=== PATIENT | female | born 1955 | race Caucasian/White ===

== ENCOUNTER 2024-10-14 21:03 | Emergency (ER) | payer MEDICARE, MEDICAID, SELFPAY ==
[2024-10-14 21:17] VITALS: BP 206/114; BP 206/147; PULSE 74; RESP 17; TEMP 36.6; O2SAT 96
--- NOTE | 2024-10-14 21:45 | PD.EDRME ---
Rapid Medical Screening Exam RME Arrival date/time: 10/14/24 21:03 Chief Complaint: Abdominal Pain Time Seen by Provider: 10/14/24 21:31 Vital signs: Vital Signs Temperature 97.8 F 10/14/24 21:17 Pulse Rate 74 10/14/24 21:17 Respiratory Rate 17 10/14/24 21:17 Blood Pressure 206/147 H 10/14/24 21:17 Pulse Oximetry (%) 96 10/14/24 21:17 Oxygen Delivery Method Room Air 10/14/24 21:17 RME Narrative: 69-year-old female presents to the ED with a complaint of nausea, vomiting, upper abdominal pain since last night. The pain is getting progressively worse causing abdominal swelling and distention with radiation to her back. She denies fever or chills, diarrhea but has had some constipation. Her last bowel movement was this morning. I have greeted and performed a focused initial assessment of this patient. A comprehensive ED assessment and evaluation of the patient, analysis of all test results, and completion of the medical decision making process will be conducted by additional ED providers.
--- NOTE | 2024-10-14 21:47 | XR_ITS ---
Examination: CT abdomen with intravenous contrast CT pelvis with intravenous contrast 2-D coronal reconstructions 2-D sagittal reconstructions Date and time of exam:October 14, 2024 11:37 PM INDICATIONS: Upper abdominal pain nausea vomiting beginning 3 days ago. CTDI: vol (mGy) 12.4 DLP: (mGycm) 699 Technique: Multiple axial sections of the abdomen and pelvis have been obtained. 64 slice high-resolution scanner used. 3 mm axial sections have been obtained, post intravenous injection 60 cc Isovue 370 2-D sagittal, coronal reconstructions obtained. Low dose protocols were performed. One or more of the following dose reduction techniques were used; automated exposure control, adjustment of the mA and/or KV according to patient size, use of iterative reconstruction technique. Findings: No focal liver or splenic lesions Absent gallbladder No pancreatic mass Left perinephric stranding 2 mm left renal calculus Wall enhancement involving the left pelvicalyceal system and left ureter, no ureteral calculi No pericecal inflammatory change No pelvic mass Air in the urinary bladder Minimal perivesical fat stranding IMPRESSION: Findings most consistent with left pyelonephritis and cystitis
[2024-10-14 22:22] LABS: Basophils % (Auto) 0 % (0-2.5); Eosinophils # (Auto) 0.1 Thou/mm3 (0.0-0.5); Eosinophils % (Auto) 1 % (0-10); Immature Granulocytes % (Auto) 0 % (0-0); Immature Granulocytes Auto 0.04 Thou/mm3 (0.00-0.00); Lymphocytes % (Auto) 11 % (10-50); Mean Corpuscular Hemoglobin 29.4 pg (25.0-35.0); Mean Corpuscular Volume 84 fL (80-100); Monocytes # (Auto) 0.5 Thou/mm3 (0.0-0.8); Monocytes % (Auto) 5 % (0-12); Neutrophils % (Auto) 82 % (37-80); Nucleated Red Blood Cell % 0 /100 WBC (0); Platelet Count 230 Thou/mm3 (140-440); RDW Standard Deviation 40.4 fL (36.4-46.3); Red Blood Count 4.76 Miln/mm3 (4.00-5.20); White Blood Count 9.7 Thou/mm3 (3.6-11.0)
[2024-10-14 22:33] LABS: Collection Type, Urine Clean Catch
[2024-10-14 22:48] LABS: Alanine Aminotransferase 14 U/L (10-49); Albumin, Serum 4.1 gm/dL (3.4-4.8); Albumin/Globulin Ratio 1.5 (1.2-2.2); Alkaline Phosphatase 74 U/L (46-116); Amylase 61 U/L (30-118); Anion Gap 11 (7-16); BUN/Creatinine Ratio 20 Ratio (12-20); Bilirubin,Total 0.6 mg/dL (0.3-1.2); Blood Urea Nitrogen 16 mg/dL (9-23); Calcium 9.1 mg/dL (8.3-10.6); Calcium (Corrected) 9.1 mg/dL (8.5-10.1); Carbon Dioxide 30.9 mMol/L (20.0-31.0); Chloride 106 mMol/L (98-107); Creatinine (Component) 0.8 mg/dL (0.6-1.3); Globulin 2.7 gm/dL (2.3-3.5); Glucose 170 mg/dL (74-106); Lipase 24 U/L (12-53); Osmolality,Calculated 299 (275-295); Phosphorous 2.7 mg/dL (2.4-5.1); Potassium 3.5 mMol/L (3.4-5.1); Sodium 148 mMol/L (136-145); Total Protein 6.8 gm/dL (5.7-8.2); eGFR > 60 See Note
[2024-10-14] MEDS: ONDANSETRON INJ 2 MG/ML INJ 2 ML 4 MG IVP (22:50)
[2024-10-14] MEDS: HYDROmorphone INJ 2 MG/ML VIAL 1 MG IVP (22:51)
[2024-10-14 22:52] LABS: Bilirubin,Urine Negative (Negative); Blood,Urine 2+ (Negative); Calcium Oxalate Crystals,Urine 1+; Clarity,Urine Turbid (Clear/Hazy); Color,Urine Lt-Yellow (Lt Yel-Yel); Glucose, Urine Negative (Negative); Ketones,Urine Negative (Negative); Leukocyte Esterase,Urine Negative (Negative); Nitrite,Urine Negative (Negative); PH,Urine 7.5 (5.0-7.0); Protein,Urine 2+ (Neg - Trace); RBC,Urine 169 /hpf (0-3); Specific Gravity,Urine 1.017 (1.001-1.035); Squamous Epithelial Cell,Urine 1 /hpf (0-5); Urobilinogen,Urine Negative mg/dL (0.0-1.0); WBC,Urine 3 /hpf (0-5)
[2024-10-14 23:18] VITALS: BP 142/82; PULSE 67; RESP 17; O2SAT 95
[2024-10-15] MEDS: SODIUM CHLORIDE 0.9% 1000 ML 1,000 ML 999 ML IV (00:02)
--- NOTE | 2024-10-15 01:14 | PRELIM_ITS ---
CT scan of the abdomen and pelvis with intravenous contrast (axial sections with sagittal and coronal reformats) October 14, 2024 2335 hours Clinical History: Upper abdominal pain, nausea and vomiting Findings: Heterogeneous lung attenuation is noted with streaky atelectasis. A calcified granuloma is seen in the left lobe of the liver. The gallbladder is surgically absent. There is mild nonspecific prominence of hte intrahepatic bile ducts. There are punctate nonobstructing left renal calculi. There is mild left hydronephrosis with urothelial thickening and enhancement. There is mild perinephric fat stranding. No evidence of ureteric calculus. The pancreas, spleen, and adrenals are unremarkable. No evidence of bowel obstruction. The appendix is within normal limits (images [id number]). There is no mesenteric or retroperitoneal adenopathy. Tiny air loculus is seen in the urinary bladder. Tiny perivesical fat stranding is seen. The uterus and adnexa are unremarkable. There is no free fluid or free air. There is osteopenia. Osseous degenerative changes are noted. Impression: Findings may represent left pyeloureteritis or inflammation secondary to a recently passed calculus. Punctate nonobstructing left renal calculi. Findings of concern for mild cystitis. Tiny intravesical air loculus, could be due to recent catheterization. Recommend clinical correlation. Other findings as described above. Report Electronically Signed By: Sondra Gandara 10/15/2024 1:13:03 AM [EST]
--- NOTE | 2024-10-15 01:40 | PD.EDABDPN ---
ED Abdominal Pain RME/HPI General Chief Complaint: Abdominal Pain Stated complaint: ABD PAIN Time seen by provider: 10/14/24 21:31 Arrival date/time: 10/14/24 21:03 RME / HPI RME / HPI narrative: 69-year-old female presents to the ED with a complaint of nausea, vomiting, upper abdominal pain since last night. The pain is getting progressively worse causing abdominal swelling and distention with radiation to her back. She denies fever or chills, diarrhea but has had some constipation. Her last bowel movement was this morning. I have greeted and performed a focused initial assessment of this patient. A comprehensive ED assessment and evaluation of the patient, analysis of all test results, and completion of the medical decision making process will be conducted by additional ED providers. --------- Dr. Meléndez?s Main ED Evaluation: 69yo female with a history of kidney stones presents to the ED for a chief complaint of epigastric pain x yesterday. Patient states her pain started radiating to her left flank and felt bloated. Patient reports associated nausea and dizziness. She was unable to tolerate the pain, so she came in for evaluation. Patient states her pain felt different from her previous kidney stones. Related Data Allergies Allergy/AdvReac Type Severity Reaction Status Date / Time ASA Allergy Unknown Uncoded 12/12/02 23:57 NKA Allergy Unknown Uncoded 12/12/02 23:57 NONSTEROIDAL Allergy Uncoded 03/31/08 12:09 Review of Systems Review of Systems Systems Reviewed: All systems reviewed, normal except as documented Past Medical History Past Medical History CARDIAC: Negative Cardiac Disorders RESPIRATORY: Positive Asthma GENITOURINARY: Negative Renal Disease ENDOCRINE: Negative Diabetes Mellitus Type 2 HEMATOLOGIC: Negative Sickle Cell Disease Social History SMOKING STATUS: Never smoker ED Exam Narrative Physical exam: GENERAL APPEARANCE: alert and oriented x 4, well-developed, well-nourished, no acute distress VITALS: All vitals were reviewed and the pulse ox is 95% on room air, which is normal according to my interpretation. HEENT: Normocephalic, atraumatic; pupils equal, round, reactive to light; EOMI; mucous membranes pink, moist; oropharynx clear NECK: Supple LUNGS: CTABL; no wheezes, no rales, no rhonchi HEART: Regular rate, regular rhythm; normal S1, S2; no murmurs ABDOMEN: non distended; normal BS; soft, no tenderness, no guarding, no rebound; no masses, no organomegaly, no hernia BACK: no CVA tenderness EXTREMITIES: atraumatic; no edema NEUROLOGIC: awake; alert and oriented x4; cranial nerves II-XII grossly intact; no focal sensory or motor deficits PSYCHIATRIC: appropriate mood and affect SKIN: warm, dry, normal color; no rashes Course Quality Measures none Orders Category Date Time Status CT Screening NOW Care 10/14/24 21:[address] Screening X1 Care 10/14/24 21:47 Completed IV [Insert IV] NOW Care 10/14/24 21:47 Completed NPO STAT Care 10/14/24 21:[address] abdomen pelvis w con Stat Exams 10/14/24 21:47 Taken Amylase Stat Lab 10/14/24 21:56 Completed CBC Stat Lab 10/14/24 21:56 Completed Comprehensive Metabolic Panel Stat Lab 10/14/24 21:56 Completed Lipase Stat Lab 10/14/24 21:56 Completed Magnesium Stat Lab 10/14/24 21:56 Completed Phosphorous Stat Lab 10/14/24 21:56 Completed Urinalysis Stat Lab 10/14/24 22:29 Completed Urine Culture Stat Lab 10/14/24 22:29 Received HYDROmorphone INJ [Dilaudid Inj] Med 10/14/24 21:47 Discontinued 1 mg IVP X1 ONE Ondansetron Inj [Zofran Inj] Med 10/14/24 21:47 Discontinued 4 mg IVP X1 ONE Sodium Chloride 0.9% 1000 ml [Ns] 1,000 ml Med 10/14/24 21:47 Discontinued IV 999 mls/hr Vital Signs Vital signs: Vital Signs Temperature 97.8 F 10/14/24 21:17 Pulse Rate 74 10/14/24 21:17 Respiratory Rate 17 10/14/24 21:17 Blood Pressure 206/147 H 10/14/24 21:17 Pulse Oximetry (%) 96 10/14/24 21:17 Oxygen Delivery Method Room Air 10/14/24 21:17 Abdominal Pain MDM MDM Narrative MDM Narrative:: Scribe Attestation: 10/15/24 - Matilda Ceballos am scribing for and in the presence of Dr. Meléndez. Patient feels significantly better after receiving pain medication. Patient is stable to be discharged home. Patient data External records reviewed:: [facility] previous records (Per chart review, patient has no previous ED visits or admissions to this facility.) Clinical information provided by:: patient Social determinants that could affect healthcare access:: none Patient has the following chronic illnesses:: none How is presenting disease/condition affected by chronic disease/condition?: no chronic disease Evaluation data The following diagnostics were reviewed and interpreted by me:: lab results and radiology exam(s) Lab and/or radiology exams considered but not ordered:: none Interpretation Summary: CBC normal, CMP normal, Lipase normal, UA negative for UTI. --------- [facility] Preliminary Report Draft Patient: MELVIN HARLEY Record#: [id number] Birthdate: 1955 Age/Sex: 69 / F Location: [facility] Attending Dr: Ordering Physician: Date of Service: Procedure(s): Accession Number(s): cc: ~ CT scan of the abdomen and pelvis with intravenous contrast (axial sections with sagittal and coronal reformats) October 14, 2024 2335 hours Clinical History: Upper abdominal pain, nausea and vomiting Findings: Heterogeneous lung attenuation is noted with streaky atelectasis. A calcified granuloma is seen in the left lobe of the liver. The gallbladder is surgically absent. There is mild nonspecific prominence of hte intrahepatic bile ducts. There are punctate nonobstructing left renal calculi. There is mild left hydronephrosis with urothelial thickening and enhancement. There is mild perinephric fat stranding. No evidence of ureteric calculus. The pancreas, spleen, and adrenals are unremarkable. No evidence of bowel obstruction. The appendix is within normal limits (images [id number]). There is no mesenteric or retroperitoneal adenopathy. Tiny air loculus is seen in the urinary bladder. Tiny perivesical fat stranding is seen. The uterus and adnexa are unremarkable. There is no free fluid or free air. There is osteopenia. Osseous degenerative changes are noted. Impression: Findings may represent left pyeloureteritis or inflammation secondary to a recently passed calculus. Punctate nonobstructing left renal calculi. Findings of concern for mild cystitis. Tiny intravesical air loculus, could be due to recent catheterization. Recommend clinical correlation. Other findings as described above. Report Electronically Signed By: Sondra Gandara 10/15/2024 1:13:03 AM [EST] Medications / Prescriptions Medications or Prescriptions considered but not ordered:: none Medication administrations:: Medication Administration History Discontinued Medications Hydromorphone HCl (Hydromorphone Inj 2 Mg/Ml Vial) 1 mg IVP X1 ONE Stop: 10/14/24 21:48 Last Admin: 10/14/24 22:51 Dose: 1 mg Documented By: EF Sodium Chloride (Ns) 1,000 mls @ 999 mls/hr IV .Q1H1M ONE Stop: 10/14/24 22:47 Last Infusion: 10/15/24 02:06 Dose: Infused Documented By: Admin: 10/15/24 00:02 Dose: 999 mls/hr Documented By: ERIK Ondansetron HCl (Ondansetron Inj 2 Mg/Ml Inj 2 Ml) 4 mg IVP X1 ONE; Protocol Stop: 10/14/24 21:48 Last Admin: 10/14/24 22:50 Dose: 4 mg Documented By: EF see above Consultations Consultation(s) initiated? (list below): No Diagnosis Differential diagnosis abdominal pain: gastroenteritis and other (kidney stone, pyelonephritis) Most likely diagnosis given after review of the tests above:: see clinical impression below Admission Indicated Admission indicated?: not indicated Explain why admission is indicated or not indicated:: Patient is stable for outpatient management. Admission Request Was there a request for admission?: No Disposition Plan Disposition Plan: Discharge Discharge Attestation Discharge Attestation: The patient and all family members were given an opportunity to ask questions and understood the discharge instructions. Discharge instructions specifically effects, indications for sooner follow up or return to the emergency department, and the expected course of current diagnosis. Patient condition: Stable Discharge Plan Plan Patient Disposition: HOME (Self Care) Prescriptions/Referrals Referrals: No Primary/Family,Physician [Primary Care Provider] - In 1 week Problem List Clinical Impression: Abdominal pain, Renal colic on left side Patient/Caregiver Discharge Instructions Education Materials: ED Flank Pain, Uncertain Cause, ED Kidney Stone w/ Colic Additional Instructions: Your CT scan shows some inflammation around your left kidney and ureter. It is possible that you have recently passed a kidney stone. There are no signs of infection. Drink plenty of fluids. Follow up with your primary care doctor as scheduled. Print Language: Nepalese Stand Alone Forms: [employer] Info., Patient Portal Info Letter
[2024-10-15 02:07] VITALS: RESP 16
== END 2024-10-15 02:08 | disposition home or self-care (01) ==
PROVIDERS: Physician Assistant; Emergency Provider Emergency Medicine
DX: N20.0 Calculus of kidney (principal); R11.2 Nausea with vomiting, unspecified
CPT/HCPCS: 36415; 74177; 80053; 81001; 82150; 83690; 83735; 84100; 85025; 87086; 96361; 96374; 96375; 99285; A4649; J1171; J2405; J7030; Q9967